=== PATIENT | female | born 1980 | race Caucasian/White ===

== ENCOUNTER 2025-03-14 05:58 | Emergency (ER) | payer OTHER, SELFPAY ==
--- NOTE | 2025-03-14 06:26 | ED.GENMED ---
History of Present Illness
General
Chief Complaint: Chest Pain
Source: patient
Exam Limitations: none
Time Seen by Provider: 03/14/25 06:18
History of Present Illness
History of Present Illness:
See MDM
Past History
Past History
ED Past Medical History: GERD
ED Past Surgical History: None
Social History
Tobacco: Non-smoker
Alcohol: None
Phy Exam
Physical Exam
Physical Exam:
See MDM
Scores
Heart Score for Chest Pain Patients
STEMI patient?: No
History: Slightly or Non-Suspicious
ECG: Normal
Age: </= 45 years
Risk Factors: No Risk Factors
Troponin: </= Normal Limit
Heart Score for Chest Pain Patients: 0
Heart Score Risk: 2.5% MACE over next 6 weeks
Course
Orders/Labs/Results
Orders:
Orders
03/14/25 06:03
Electrocardiogram (*1) Urgent
Reason for Study: Chest Pain
EKG- Treatment ONCE
03/14/25 06:24
Ketorolac [Toradol] 30 mg IV NOW STA
Test Result ONCE
03/14/25 06:25
CR Chest - 2 Views Urgent
Comment:
Reason For Exam: chest pain
03/14/25 06:33
HCG, Serum Qualitative Screen Urgent
03/14/25 07:03
Complete Blood Count/With Diff Urgent
Comment: REDRAW
Comprehensive Metabolic Panel Urgent
Comment: REDRAW
Troponin I Urgent
Comment: REDRAW
Abnormal Lab Results
03/14/25
07:03
Hgb 9.7 L g/dL
(12.0-16.0)
Hct 31.9 L %
(37.0-47.0)
MCV 72.2 L fL
(81.0-99.0)
MCH 21.9 L pg
(27.0-31.0)
MCHC 30.4 L g/dL
(33.0-37.0)
RDW 17.0 H %
(11.5-14.5)
MPV 11.8 H fL
(7.4-10.4)
BUN 22 H mg/dl
(7-17)
Glucose 115 H mg/dl
(70-99)
Total Bilirubin < 0.1 L mg/dl
(0.2-1.3)
03/14/25 07:03
03/14/25 07:03
Vital Signs
Initial and Last Documented VS:
Initial Vital Signs
Temp Pulse Resp Pulse Ox
97.8 F 71 20 100
03/14/25 06:01 03/14/25 06:01 03/14/25 06:01 03/14/25 06:01
Last Documented Vital Signs
Temp Pulse Resp Pulse Ox
97.8 F 88 20 100
03/14/25 06:01 03/14/25 06:20 03/14/25 06:20 03/14/25 06:29
MDM/Problems Addressed
Differential Diagnosis Includes:
Note:
CHIEF COMPLAINT(S)
Chest pain and back pain localized to the left side.
HISTORY OF PRESENT ILLNESS
The patient is a 44-year-old female with a known history of acid reflux, presenting with chest and back pain on the left side since approximately 3:30 a.m. She initially awoke secondary to discomfort from a tightly wrapped bandage following a mole
excision near her knee the previous day. She was able to fall back asleep but was subsequently awakened by the chest and back pain approximately at 3:30 a.m. The pain did not resolve with standard antacid treatment. The patient reports recent
dietary indiscretion, including the consumption of fried food. She denies any abdominal pain, and currently continues to experience chest discomfort.
PHYSICAL EXAM
General: Alert, no acute distress.
Skin: Warm, dry.
Head: Normocephalic, atraumatic
Neck: Appears supple, trachea midline.
Eyes, Ears, Nose, Mouth, and Throat: Moist mucous membranes
Cardiovascular: No signs of cyanosis. Regular rate and rhythm
Respiratory: Respirations are non-labored. Lungs clear
Abdomen: Non-distended
Musculoskeletal: No deformities
Neurological: No focal neurological deficit observed.
Psychiatric: Cooperative, appropriate mood and affect.
PLAN
- Perform an Electrocardiogram (EKG).
- Order blood work to evaluate for myocardial infarction.
- Obtain chest X-ray to rule out additional causes of the chest pain.
- Administer Toradol (ketorolac), an intravenous nonsteroidal anti-inflammatory drug (NSAID), for pain relief.
DIFFERENTIAL DIAGNOSIS
The Differential Diagnosis includes, in no particular order and is not limited to:
- Myocardial infarction
- Pulmonary embolism
- Pneumothorax
- Aortic dissection
- GERD (Gastroesophageal Reflux Disease)
- Musculoskeletal pain
- Costochondritis
- Anxiety-related chest pain
- Pericarditis
- Esophageal spasm
SUMMARY OF ENCOUNTER
The patient was seen in the emergency department due to concerns of left-sided chest and back pain. The presented symptoms prompted consideration of acute coronary syndrome, among other serious conditions. An EKG was performed, followed by blood
work and chest X-ray to eliminate emergent conditions. The patients recent surgical history and bandage discomfort were also considered in the overall assessment. Toradol was administered to alleviate the pain while ensuring the absence of
contraindications related to her recent surgical procedure.
EMERGENCY TREATMENTS ADMINISTERED
Intravenous Toradol for pain management.
MEDICATION RECONCILIATION
- Toradol (ketorolac) IV administered for pain relief.
MEDICAL DECISION MAKING
-Complexity of Data Reviewed: Chronic conditions affecting care [acid reflux]
-Data:
Category 1
Tests and documents: EKG and lab work ordered; chest X-ray considered for further evaluation.
Category 2
My independent interpretation of EKG indicates no immediate abnormalities suggestive of coronary artery disease.
Category 3
Discussion of management with other physician, healthcare provider, other source, not applicable in this case.
-Risk:
Consideration of Admission/Observation: Escalation of care including admission/observation was considered given the complexity and risk of the patients presenting complaint, exam findings, and/or her underlying comorbidities. However, ultimately, I
feel the patient is safe for outpatient management with close follow-up. Reasoning: Work-up reassuring, does not reveal any acute life/organ-threatening processes, the patients symptoms well controlled upon reevaluation, reexamination is reassuring,
vitals are stable, patient agreeable with discharge, reliable for follow-up.
DIAGNOSIS
- Chest pain (R07.9)
- Gastroesophageal reflux disease (GERD) (K21.9)
- Observation for myocardial infarction (Z03.4)
EKG
My independent EKG interpretation is:
- Sinus rhythm
- Heart rate: 84 beats per minute
- Normal axis
- No ST segment elevation
- Intervals within normal limits
SUMMARY OF ENCOUNTER
The patient presented to the emergency department with concerns of left-sided chest discomfort. Despite suspecting it might be gastritis-related, she reported persistent pain, prompting further evaluation. An Electrocardiogram (EKG) was performed,
indicating a non-ischemic pattern, and the chest findings were clear. Given the low index of suspicion for acute coronary syndrome and after a discussion about the likely non-cardiac nature of her symptoms, Toradol (ketorolac) was administered,
resulting in some improvement.
ASSESSMENT
The discussion focused on [id number] chest discomfort. Additionally, incidental anemia was identified, and options for management, including iron supplementation, were discussed with the patient.
EMERGENCY TREATMENTS ADMINISTERED
Toradol (ketorolac) was administered for pain relief.
PLAN
Perform further evaluations, if necessary, to rule out other causes of chest pain. Consider follow-up with primary care for ongoing management of GERD and monitoring of anemia.
PATIENT EDUCATION AND COUNSELING
Discussed with the patient the low concern for acute coronary syndrome and the [id number] nature of her chest discomfort. Anemia was also discussed, with suggestions to take iron supplements.
MEDICATION RECONCILIATION
Toradol (ketorolac) administered for pain relief.
MEDICAL DECISION MAKING
-Complexity of Data Reviewed: Chronic conditions affecting care [acid reflux]. Differential Diagnosis includes: Myocardial infarction, Pulmonary embolism, Pneumothorax, Aortic dissection, GERD, Musculoskeletal pain, Costochondritis, Anxiety-related
chest pain, Pericarditis, Esophageal spasm.
-Data:
Category 1: EKG ordered and reviewed indicating non-ischemic findings.
Category 2: My independent interpretation of EKG is: Rhythm: Normal sinus rhythm, Heart Rate: 84 beats per minute, [place]: Normal axis, Observations: No ectopic beats noted, ST Segment: No ST segment changes detected.
-Risk: Consideration of Admission/Observation: Escalation of care including admission/observation was considered given the complexity and risk of the patients presenting complaint, exam findings, and/or their underlying comorbidities. However,
ultimately, I feel the patient is safe for outpatient management with close follow-up. Reasoning: Work-up reassuring, does not reveal any acute life/organ threatening processes, the patients symptoms well controlled upon reevaluation, reexamination
is reassuring, vitals are stable, patient agreeable with discharge, reliable for follow-up.
DIAGNOSIS
- Chest pain (R07.9)
- Gastroesophageal reflux disease (GERD) (K21.9)
- Anemia, unspecified (D64.9)
*Pulse Oximetry
SaO2: 100
Oxygen Mode of Delivery: Room air
Patient hypoxic: no
*Critical Care Note
Total Time (30-74mins, 75-104mins- exclusive of procedures): Not Applicable
ED Attending Note
-
Portions of this chart may have been created with voice recognition software.� Occasional wrong word or��sound alike� substitutions may have occurred due to the inherent limitations of voice recognition software.
Discharge Plan
Departure
Patient Disposition: Home (Routine Discharge)
Date of Disposition: 03/14/25
Time of Disposition: 08:14
Patient with high blood pressure during this ER visit?: No
Discharge Problem:
Chest pain
Instructions: Chest Pain PCP Follow Up
Prescriptions:
No Action
pantoprazole 20 mg Tablet,Delayed Release (Dr/Ec)
20 mg PO DAILY
escitalopram oxalate [Lexapro] 20 mg Tablet
20 mg PO DAILY
Referrals:
[facility], [Other]
Paulina Diaz DO [Family Provider, Family Practice]
Activity Restrictions/Additional Instructions:
Please return for any worsening symptoms.
You may return at any time if you have further concerns.
Please follow up with your doctor at the first available appointment, preferably this week.
Thank you for choosing [facility].
Interventions
Interventions:
*Risk Screen - Suicide Last Done: 03/14/25 06:23
*General Assessment Last Done: 03/14/25 06:23
*Neglect/Abuse Screening Last Done: 03/14/25 06:23
*ED- Fall Risk Assessment Last Done: 03/14/25 06:23
*ED COVID-19 Vaccine History Last Done: 03/14/25 06:23
*ED Influenza Vaccine History Last Done: 03/14/25 06:23
ED- Cardiac Assessment Last Done: 03/14/25 06:28
Discharge Date and Time
Print Language: PORTUGUESE
[2025-03-14 06:27] VITALS: BMI 36.7
[2025-03-14 06:35] VITALS: BP 178/89
[2025-03-14] MEDS: TORADOL 30 MG IV (06:54)
[2025-03-14 07:14] LABS: HCG, Serum Qualitative Screen Negative
[2025-03-14 07:31] LABS: Hematocrit 31.9 % (37.0-47.0); Hemoglobin 9.7 g/dL (12.0-16.0); Mean Corp Hgb Conc. 30.4 g/dL (33.0-37.0); Mean Corpuscular Volume 72.2 fL (81.0-99.0); Nucleated Red Blood Cells % 0 %; Platelet Count 257 10^3/uL (130-400); Red Cell Dist. Width 17.0 % (11.5-14.5)
[2025-03-14 07:34] LABS: ALT (SGPT) 15 U/L (0-35); AST (SGOT) 18 U/L (14-36); Albumin 4.3 g/dl (3.5-5.0); Alkaline Phosphatase 69 U/L (38-126); Blood Urea Nitrogen 22 mg/dl (7-17); Calcium 9.5 mg/dl (8.4-10.2); Carbon Dioxide 27 mmol/L (22-30); Chloride 103 mmol/L (98-107); Estimated Creatinine Clearance 98 ml/min; Glucose 115 mg/dl (70-99); Potassium 4.6 mmol/L (3.5-5.1); Sodium 135 mmol/L (135-145); Total Protein 7.4 g/dl (6.3-8.2); eGFR > 60.00
[2025-03-14 07:52] LABS: Troponin I 0.019 ng/ml
[2025-03-14 08:15] VITALS: BP 150/95
== END 2025-03-14 08:22 | disposition home or self-care (01) ==
LOC: EMR 05:58
PROVIDERS: EMERGENCY PHYSICIAN Student in an Organized Health Care Education/Training Program; FAMILY PHYSICIAN Family Medicine
DX: R07.89 Other chest pain (principal); K21.9 Gastro-esophageal reflux disease without esophagitis; D64.9 Anemia, unspecified
CPT/HCPCS: 99283; 96374; 71046; 80053; 84484; 84703; 85025; 93005

== ENCOUNTER 2025-03-16 17:55 | Inpatient (IN) | payer OTHER, SELFPAY ==
[2025-03-16] VITALS (12 sets, daily range): BP systolic 142–177; BP diastolic 81–105; BMI 37.2; BMI 37.3
--- NOTE | 2025-03-16 09:20 | ED.GENMED ---
History of Present Illness
<GT Borjas - Last Filed: 03/16/25 16:29>
General
Chief Complaint: Chest Pain
Source: patient
Exam Limitations: none
Time Seen by Provider: 03/16/25 09:12
Nursing documentation reviewed up to this point in time: agreed with
History of Present Illness
History of Present Illness:
Patient is a 44-year-old female with history of reflux anxiety presents to the ER for evaluation. Patient complains of back pain chest pain. She was here 2 days ago for chest pain and back pain and had a full workup and was discharged home.
Patient reports around 12 AM she was awoken again by pain. She reports she has pain in her center of her chest which radiates to her back. She denies any associated shortness of breath nausea vomiting diaphoresis. She has some discomfort now in
her back. She denies any shortness of breath. She does have a history of reflux but this does not feel like reflux. She has no cardiac history. Her father did have an IA in his 40s.
She does not smoke. She is not on oral contraceptives no other DVT PE risk factors.
She denies any upper abdominal discomfort. She has tried naproxen and Advil along with antacids without relief
Past History
<GT Borjas - Last Filed: 03/16/25 16:29>
Past History
ED Past Medical History: GERD
ED Past Surgical History: None
Social History
Tobacco: Non-smoker
Alcohol: None
Phy Exam
<GT Borjas - Last Filed: 03/16/25 16:29>
General Physical Exam
General Presentation: no apparent distress
General age: appears stated age
General Skin: warm and dry
General Habitus: normal
General Mental: alert
General Hydration: appears well hydrated
Neurological Exam
Neurological Exam: alert and oriented x3
Musculoskeletal Exam
Musculoskeletal Exam: full ROM
Skin Exam
Skin Exam: normal color and warm/dry
Psychiatric Exam
Psychiatric Exam: normal mood/affect
Scores
<GT Borjas - Last Filed: 03/16/25 16:29>
Heart Score for Chest Pain Patients
STEMI patient?: Not applicable
Course
<GT Borjas - Last Filed: 03/16/25 16:29>
Orders/Labs/Results
Orders:
Orders
03/16/25 08:56
ECG [Electrocardiogram (*1)] Urgent
Reason for Study: Chest Pain
03/16/25 08:57
EKG- Treatment ONCE
03/16/25 09:15
IV Insert/Care/Rem.- Treatment PRN
O2 Therapy [RESP] Urgent
Titrate/Wean O2 to maintain O2 sat greater than (%): 90
Special Instructions: Maintain sats >/=90%
Pulse Ox/spot Check [RESP] Urgent
Quantity: 1
Special Instructions: ON ROOM AIR
03/16/25 09:28
Complete Blood Count/With Diff Urgent
Troponin I Urgent
03/16/25 09:37
CT Chest PE Study Urgent
Comment:
Reason For Exam: cp radiating to back
0.9% Sodium Chloride 1000 ml [Nss] 1,000 ml IV BOLUS
03/16/25 10:14
Ketorolac [Toradol] 15 mg .ROUTE .STK-MED ONE
03/16/25 10:19
Comprehensive Metabolic Panel Urgent
Lipase Urgent
Comment: ADD ON
03/16/25 10:57
Ketorolac [Toradol] 15 mg IV NOW STA
03/16/25 11:46
Morphine Sulfate 4 mg .ROUTE .STK-MED ONE
03/16/25 11:55
Morphine Sulfate 4 mg IV NOW STA
03/16/25 13:38
Add On- LAB Stat
Tests Added?: lipase
HYDROmorphone [Dilaudid] 1 mg IV NOW STA
03/16/25 13:40
US Abdomen Complete/Upper Urgent
Comment:
Reason For Exam: chest pain radiating to back
03/16/25 14:00
Electrocardiogram (*1) Urgent
Reason for Study: Chest Pain
EKG- Treatment ONCE
03/16/25 14:12
Troponin I Urgent
03/16/25 15:05
Mag Hydrox/Al Hydrox/Simeth [Maalox] 30 ml Phenobarb/Hyoscy/Atropine/Scop [] 10 ml Viscous Lidocaine 2% [Xylocaine Viscous Cup] 10 ml PO NOW
03/16/25 16:03
Mag Hydrox/Al Hydrox/Simeth [Maalox] 30 ml .ROUTE .STK-MED ONE
Phenobarb/Hyoscy/Atropine/Scop [] 10 ml .ROUTE .STK-MED ONE
Viscous Lidocaine 2% [Xylocaine Viscous Cup] 15 ml .ROUTE .STK-MED ONE
Abnormal Lab Results
03/16/25 03/16/25
09:28 10:19
WBC 12.8 H 10^3/uL
(4.8-10.8)
Hgb 9.5 L g/dL
(12.0-16.0)
Hct 30.4 L %
(37.0-47.0)
MCV 70.7 L fL
(81.0-99.0)
MCH 22.1 L pg
(27.0-31.0)
MCHC 31.3 L g/dL
(33.0-37.0)
RDW 16.8 H %
(11.5-14.5)
MPV 11.2 H fL
(7.4-10.4)
Absolute Neuts (auto) 9.4 H 10^3/uL
(1.4-6.5)
Absolute Monos (auto) 0.9 H 10^3/uL
(0.1-0.6)
Lymphocytes % 17.9 L %
(20.5-51.1)
Sodium 132 L mmol/L
(135-145)
BUN 18 H mg/dl
(7-17)
Glucose 106 H mg/dl
(70-99)
03/16/25 09:28
03/16/25 10:19
Vital Signs
Initial and Last Documented VS:
Initial Vital Signs
Temp Pulse Resp BP Pulse Ox
97.4 F 79 20 172/103 100
03/16/25 08:54 03/16/25 08:54 03/16/25 08:54 03/16/25 08:54 03/16/25 08:54
Last Documented Vital Signs
Temp Pulse Resp BP Pulse Ox
97.4 F 74 14 156/97 100
03/16/25 08:54 03/16/25 10:30 03/16/25 10:30 03/16/25 12:02 03/16/25 12:02
Cctv Technician consulted with Physician
Cctv Technician consulted with physician?: Yes
Name of Physician Consulted: Cherise
<Ailyn Luong MD - Last Filed: 03/16/25 13:59>
Orders/Labs/Results
Orders:
Orders
03/16/25 08:56
ECG [Electrocardiogram (*1)] Urgent
Reason for Study: Chest Pain
03/16/25 08:57
EKG- Treatment ONCE
03/16/25 09:15
IV Insert/Care/Rem.- Treatment PRN
O2 Therapy [RESP] Urgent
Titrate/Wean O2 to maintain O2 sat greater than (%): 90
Special Instructions: Maintain sats >/=90%
Pulse Ox/spot Check [RESP] Urgent
Quantity: 1
Special Instructions: ON ROOM AIR
03/16/25 09:28
Complete Blood Count/With Diff Urgent
Troponin I Urgent
03/16/25 09:37
CT Chest PE Study Urgent
Comment:
Reason For Exam: cp radiating to back
0.9% Sodium Chloride 1000 ml [Nss] 1,000 ml IV BOLUS
03/16/25 10:14
Ketorolac [Toradol] 15 mg .ROUTE .STK-MED ONE
03/16/25 10:19
Comprehensive Metabolic Panel Urgent
Lipase Urgent
Comment: ADD ON
03/16/25 10:57
Ketorolac [Toradol] 15 mg IV NOW STA
03/16/25 11:46
Morphine Sulfate 4 mg .ROUTE .STK-MED ONE
03/16/25 11:55
Morphine Sulfate 4 mg IV NOW STA
03/16/25 13:38
Add On- LAB Stat
Tests Added?: lipase
HYDROmorphone [Dilaudid] 1 mg IV NOW STA
03/16/25 13:40
US Abdomen Complete/Upper Urgent
Comment:
Reason For Exam: chest pain radiating to back
03/16/25 14:00
Electrocardiogram (*1) Urgent
Reason for Study: Chest Pain
EKG- Treatment ONCE
03/16/25 14:12
Troponin I Urgent
03/16/25 15:05
Mag Hydrox/Al Hydrox/Simeth [Maalox] 30 ml Phenobarb/Hyoscy/Atropine/Scop [] 10 ml Viscous Lidocaine 2% [Xylocaine Viscous Cup] 10 ml PO NOW
03/16/25 16:03
Mag Hydrox/Al Hydrox/Simeth [Maalox] 30 ml .ROUTE .STK-MED ONE
Phenobarb/Hyoscy/Atropine/Scop [] 10 ml .ROUTE .STK-MED ONE
Viscous Lidocaine 2% [Xylocaine Viscous Cup] 15 ml .ROUTE .STK-MED ONE
Abnormal Lab Results
03/16/25 03/16/25
09:28 10:19
WBC 12.8 H 10^3/uL
(4.8-10.8)
Hgb 9.5 L g/dL
(12.0-16.0)
Hct 30.4 L %
(37.0-47.0)
MCV 70.7 L fL
(81.0-99.0)
MCH 22.1 L pg
(27.0-31.0)
MCHC 31.3 L g/dL
(33.0-37.0)
RDW 16.8 H %
(11.5-14.5)
MPV 11.2 H fL
(7.4-10.4)
Absolute Neuts (auto) 9.4 H 10^3/uL
(1.4-6.5)
Absolute Monos (auto) 0.9 H 10^3/uL
(0.1-0.6)
Lymphocytes % 17.9 L %
(20.5-51.1)
Sodium 132 L mmol/L
(135-145)
BUN 18 H mg/dl
(7-17)
Glucose 106 H mg/dl
(70-99)
03/16/25 09:28
03/16/25 10:19
Vital Signs
Initial and Last Documented VS:
Initial Vital Signs
Temp Pulse Resp BP Pulse Ox
97.4 F 79 20 172/103 100
03/16/25 08:54 03/16/25 08:54 03/16/25 08:54 03/16/25 08:54 03/16/25 08:54
Last Documented Vital Signs
Temp Pulse Resp BP Pulse Ox
97.4 F 74 14 156/97 100
03/16/25 08:54 03/16/25 10:30 03/16/25 10:30 03/16/25 12:02 03/16/25 12:02
<GT Borjas - Last Filed: 03/16/25 16:29>
MDM/Problems Addressed
Differential Diagnosis Includes:
Not limited to GERD gastritis pancreatitis cholecystitis less likely PE
MDM/Problems Addressed:
As documented patient is a 44-year-old female who presents back to the ER today complaining of chest pain which radiates to the back. She was seen here 2 days ago and had a negative cardiac work up. She was awoken last night around 12 AM with
anterior chest pain that radiates to her back. She denies any fever or chills. She denies any shortness of breath. Patient presents uncomfortable given morphine IV. Abdomen soft nontender nontachypneic not hypoxic afebrile white count minimally
elevated which is increased compared to white count 2 days ago ; trop is 0.015 which Is decreased from 2 d ago. Given the chest pain radiating to back CT PE study was done negative for PE.t talk here is noted to be a 1.8 cm noncalcified gallstone
however the bladder is not completely visualized.
When patient came back from CAT scan she continues to be in discomfort now complaining of most of the pain in her left breast chest area rating to her back will give a dose of IV Dilaudid and add a lipase order an upper abdominal ultrasound. Case
discussed with ED physician who evaluated patient bedside.
US : IMPRESSION:
Shadowing gallstone is present in the region of the neck of the gallbladder. There is also a mobile layer of sludge within the gallbladder lumen.
Gallbladder wall appears thickened and possible small amount of pericholecystic edema adjacent to the superior wall the gallbladder. Negative sonographic Jose's sign.
Please correlate with clinical signs and symptoms that would be suggestive of acute cholecystitis.
No gross evidence of intrahepatic bile duct dilation. The common bile duct measures up to 7 mm, which is mildly dilated. No sonographic evidence for bile duct calculus.
The pancreas is not well-visualized, especially the tail the pancreas.
Patient is afebrile white count is unremarkable normal LFTs normal lipase. Likely biliary colic intractable pain will require admission. Case discussed with surgery Dr. Celeste who recommends n.p.o. at this time as well as admitting hospitalist.
N.p.o.
Chronic conditions affecting care:
GERD
<GT Borjas - Last Filed: 03/16/25 16:29>
*Radiology
Radiology exam reviewed: radiology read reviewed
*Pulse Oximetry
SaO2: 100
Oxygen Mode of Delivery: Room air
Patient hypoxic: no
*EKG
Interpreted by ED Provider?: Yes
Interpretation: normal
Comparison EKG: no changes
Heart Rate: 71
Rate: normal
Rhythm: sinus
Ischemia: no ischemia
*Critical Care Note
Total Time (30-74mins, 75-104mins- exclusive of procedures): Not Applicable
<GT Borjas - Last Filed: 03/16/25 16:29>
Patient Management
Discussion with other providers: Supercharger Mechanic (surg Dr Celeste )
ED Attending Note
<GT Borjas - Last Filed: 03/16/25 16:29>
-
Portions of this chart may have been created with voice recognition software.� Occasional wrong word or��sound alike� substitutions may have occurred due to the inherent limitations of voice recognition software.
<Ailyn Luong MD - Last Filed: 03/16/25 13:59>
ED Attending Note
Patient seen and examined by attending physician: Yes
I performed the substantive portion of visit, reviewed & personally made and approve the management plan that is documented in note by myself or RAMA.: Yes
ED Attending Note:
Patient's heart sounds regular. Her lungs are clear. Patient reports moderate pain behind the left breast. Her troponins are in the normal range, however, due to her ongoing chest pain, we will repeat her EKG and order another troponin.
Additionally, we will also order an upper abdominal ultrasound to better visualize her gallbladder and a lipase to rule out acute pancreatitis. CT report reviewed by me. No sign of PE or aortic dissection.
Discharge Plan
Departure
Patient Disposition: Admit
Date of Disposition: 03/16/25
Time of Disposition: 16:26
Admit to: Med/Surg
Admit to doctor: hospitalist
Presentation/result/management discussed w/ accepting MD/DO: Hospitalist
Patient with high blood pressure during this ER visit?: Yes
Condition: Fair
Covid-19: Not Applicable
Discharge Problem:
Biliary colic
Prescriptions:
No Action
pantoprazole 20 mg Tablet,Delayed Release (Dr/Ec)
20 mg PO DAILY
escitalopram oxalate [Lexapro] 20 mg Tablet
20 mg PO DAILY
Referrals:
Paulina Diaz DO [Family Provider, Family Practice]
Interventions
Interventions:
*Risk Screen - Suicide Last Done: 03/16/25 08:54
*General Assessment Last Done: 03/16/25 09:13
*Neglect/Abuse Screening Last Done: 03/16/25 09:14
*ED- Fall Risk Assessment Last Done: 03/16/25 09:13
*ED COVID-19 Vaccine History Last Done: 03/16/25 09:12
*ED Influenza Vaccine History Last Done: 03/16/25 09:13
ED- Cardiac Assessment Last Done: 03/16/25 09:10
Discharge Date and Time
Print Language: SPANISH
[2025-03-16 09:45] LABS: Hematocrit 30.4 % (37.0-47.0); Hemoglobin 9.5 g/dL (12.0-16.0); Mean Corp Hgb Conc. 31.3 g/dL (33.0-37.0); Mean Corpuscular Volume 70.7 fL (81.0-99.0); Nucleated Red Blood Cells % 0 %; Platelet Count 228 10^3/uL (130-400); Red Cell Dist. Width 16.8 % (11.5-14.5)
[2025-03-16] MEDS: NSS 1000 IV ×2 (10:00→20:15)
[2025-03-16 10:09] LABS: Troponin I 0.015 ng/ml
[2025-03-16] MEDS: TORADOL 15 MG IV (10:30)
[2025-03-16 10:54] LABS: ALT (SGPT) 12 U/L (0-35); AST (SGOT) 18 U/L (14-36); Albumin 3.7 g/dl (3.5-5.0); Alkaline Phosphatase 68 U/L (38-126); Blood Urea Nitrogen 18 mg/dl (7-17); Calcium 8.7 mg/dl (8.4-10.2); Carbon Dioxide 24 mmol/L (22-30); Chloride 103 mmol/L (98-107); Estimated Creatinine Clearance 108 ml/min; Glucose 106 mg/dl (70-99); Potassium 4.2 mmol/L (3.5-5.1); Sodium 132 mmol/L (135-145); Total Protein 6.5 g/dl (6.3-8.2); eGFR > 60.00
[2025-03-16] MEDS: MORPHINE SULFATE 4 MG IV (11:57)
[2025-03-16] MEDS: DILAUDID 1 MG IV ×2 (13:46→16:40)
[2025-03-16 14:12] LABS: Lipase 95 U/L (23-300)
[2025-03-16 14:51] LABS: Troponin I < 0.012 ng/ml
[2025-03-16] MEDS: MAALOX 50 PO (16:11)
--- NOTE | 2025-03-16 17:00 | CON.GS ---
Addendum entered and electronically signed by Patrick Celeste MD 03/17/25 11:12:
I saw and examined the patient.
The Follow Up Specialist's note was reviewed and I agree with the note.
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 AFVSS. ttp to RUQ on exam. mild leukocytosis noted. US with gBWT, PCF, 3cm stone in the neck of the gb, CBD WNL. OCTOR for rCCY.
Original Note:
Consultation
-
Date/Time Consultation Performed: 03/16/25 1645
Medical History
-
Chief Complaint: abdominal pain
History of Present Illness:
Ms Eugene is a 44 yo female with a GERD and hiatal hernia who presented initially 2 days ago with upper abdominal pain into her chest with cardiac work up negative and subsequent d/c to home as pain resolved with analgesics. She returns today with
the same pain which awakened her from sleep early this am and persisted. She describes the pain as being in her left upper abdomen underneath the breast and into her mid back. Pain persisted causing her to present again through the ED. She initially
felt like it was indigestion but omeprazole and Tums did not relieve symptoms. She denies associated nausea, vomiting or bowel changes. She denies jaundice or acholic stools. On exam, she is tender to the RUQ with no tenderness on the left. She
denies fevers or chills.
Past Medical History
Past Medical History: GERD (hiatal hernia)
Past Surgical History: Other (recent mole removal on leg)
Social History
Tobacco: Non-Smoker
Alcohol: None
Family History
Family History: Reviewed & Not Pertinent
Allergies / Home Medications
Allergy/AdvReac Type Severity Reaction Status Date / Time
No Known Allergies Allergy Verified 03/16/25 08:53
�Medication �Instructions �Recorded �Confirmed �Type
escitalopram oxalate 20 mg tablet 20 mg PO HS Mental Health/Anxiety 03/14/25 03/16/25 History
(Lexapro)
cholecalciferol (vitamin D3) 25 25 mcg PO DAILY Supplement 03/16/25 03/16/25 History
mcg (1,000 unit) tablet (Vitamin
D3)
ibuprofen 200 mg tablet (Advil) 400 mg PO Q6HPRN PRN MILD PAIN 03/16/25 03/16/25 History
naproxen sodium 220 mg tablet 220 mg PO BIDPRN PRN MILD PAIN 03/16/25 03/16/25 History
(Aleve)
omeprazole 20 mg tablet,delayed 20 mg PO DAILY Gastrointestinal 03/16/25 03/16/25 History
release Issue
Review of Systems
-
History Source: Patient and Family
All other systems: Negative unless noted
A 10 point review of systems was completed, and was negative except as per HPI.
Physical Exam
Vital Signs
Temp Pulse Resp BP Pulse Ox
97.4 F 74 14 156/97 100
03/16/25 08:54 03/16/25 10:30 03/16/25 10:30 03/16/25 12:02 03/16/25 12:02
03/15/25 03/16/25 03/17/25
06:59 06:59 06:59
Actual Weight 92.2 kg
Body Mass Index (BMI) 37.2
Lab Results
03/16/25 09:28
03/16/25 10:19
WBC 12.8 10^3/uL (4.8-10.8) H 03/16/25 09:28
Hgb 9.5 g/dL (12.0-16.0) L 03/16/25 09:28
Hct 30.4 % (37.0-47.0) L 03/16/25 09:28
Plt Count 228 10^3/uL (130-400) 03/16/25 09:28
Abs Immat Gran (auto) 0.0 10^3/uL (0-0.05) 03/16/25 09:28
Neutrophils % 73.7 % (42.2-75.2) 03/16/25 09:28
Physical Exam
General: Well Developed and Well Nourished
HEENT: Moist Mucous Membranes
Respiratory: Non Labored Respirations
GI: Soft, Non Distended and Tender (RUQ)
Skin: Warm and Dry
Neuro: Awake, Alert and AO x 3
Psych: Calm
Data Reviewed
-
CT Scan: Image Personally Visualized and interpreted, Report Reviewed by me, Discussed with Physician, Discussed with Patient and Discussed with Family
Ultrasound: Image Personally Visualized and interpreted, Report Reviewed by me, Discussed with Physician, Discussed with Patient and Discussed with Family
Labs: Labs Reviewed by me, Discussed with Physician, Discussed with Patient and Discussed with Family
Old Records: Reviewed
Assessment / Plan
-
44 yo female with recurrent left sided abdominal pain into her mid back. 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
this gallstone in the neck of the gallbladder. Gallbladder wall thickening seen on both images, with pericholecystic edema. On exam, she is quite tender to the RUQ. She initially denied nausea, but then started vomiting just after exam. AFVSS. Mild
leukocytosis. LFT's WNL. Lipase WNL. Suspect biliary colic vs more likely acute cholecystitis
Plan:
Keep NPO given ongoing symptoms
Analgesics/antiemetics
Start IV Zosyn for empiric coverage
Will add on to OR schedule for AM for lap vs robotic cholecystectomy
Discussed with hospitalist team
--- NOTE | 2025-03-16 17:43 | HPS.HSE ---
Family Physician
-
Family Physician: Paulina Diaz
Chief Complaint
-
Chest/Abdominal pain
History of Present Illness
Patient is a 44-year-old female with a PMH significant for GERD and OCD who is presenting with upper abdominal and lower chest pain. Patient initially presented 2 days ago to [facility] with left-sided chest pain that woke her up from sleep. Cardiac
workup was negative and patient was discharged home as her pain resolved with analgesics. Patient returned to the ED today with similar pain that woke her up last night. She describes it as left-sided, under her left breast. Patient at first
thought the pain was related to reflux as she has a history of GERD for which she takes omeprazole, although Tums did not help and she states the pain is different in nature than her normal episodes of reflux. Patient denies shortness of breath,
radiating chest pain, heart palpitations. Patient does note new nausea with vomiting that started in the ED.
In the ED today, patient's blood work was unremarkable, aside from hemoglobin of 9.5. Lipase was 95, troponins negative. EKG showed normal sinus rhythm. CT PE study indicated no evidence of PE, but did visualize a 1.8 noncalcified gallstone seen
within the gallbladder. Abdominal ultrasound showed shadowing of the gallstone in the region of the neck of the gallbladder, as well as a mobile area of sludge, with pericholecystic edema. No dilation of the bile duct. Surgery has been consulted
and plans to take patient for cholecystectomy tomorrow morning. Patient will be admitted to the medicine team for medical management.
Medical History
Past Medical History
Past Medical History: Reports GERD
Past Surgical History: Reports None
Social History
Tobacco: Non-smoker
Alcohol: None
Family History
Family History: Diabetes
Allergies / Home Medications
Allergies reflects when Allergies were last updated in [employer].
Home Medications with original date entered in [employer]
Allergy/Medication List:
Allergies
Allergy/AdvReac Type Severity Reaction Status Date / Time
No Known Allergies Allergy Verified 03/16/25 08:53
Home Medications
escitalopram oxalate 20 mg tablet (Lexapro) 20 mg PO HS Mental Health/Anxiety 03/14/25
cholecalciferol (vitamin D3) 25 mcg (1,000 unit) tablet (Vitamin D3) 25 mcg PO DAILY Supplement 03/16/25
ibuprofen 200 mg tablet (Advil) 400 mg PO Q6HPRN PRN MILD PAIN 03/16/25
naproxen sodium 220 mg tablet (Aleve) 220 mg PO BIDPRN PRN MILD PAIN 03/16/25
omeprazole 20 mg tablet,delayed release 20 mg PO DAILY Gastrointestinal Issue 03/16/25
Review of Systems
-
History Source: Patient and Family
Constitutional: Reports No Symptoms
EENT: Reports No Symptoms
Respiratory: Reports No Symptoms
Cardiac: Reports Chest Pain
Abdomen/GI: Reports Abdominal Pain, Nausea and Vomiting
: Reports No Symptoms
Musculoskeletal: Reports No Symptoms
Skin: Reports Other (Atypical mole removed on medial right lower extremity, bandaged with Steri-Strips)
Neurological: Reports No Symptoms
Endocrine: Reports No Symptoms
Hematologic/Lymphatic: Reports No Symptoms
Psych: Reports OCD
Physical Exam
Vital Signs
Vital Signs
Temp Pulse Resp BP Pulse Ox
97.4 F 87 20 159/84 99
03/16/25 08:54 03/16/25 17:15 03/16/25 17:15 03/16/25 17:00 03/16/25 16:30
Physical Exam
General: Well Developed and Well Nourished
HEENT: Moist mucous membranes
Respiratory: Clear
Cardiac: Regular Rhythm
GI: Soft, Non Distended and Tender (Right upper quadrant, positive Jose sign)
Musculoskeletal: No Edema
Skin: Warm and Dry
Neuro: Awake, Alert and Oriented
Psych: Anxious
Laboratory Results
-
03/16/25 09:28
03/16/25 10:19
Laboratory Results
Total Bilirubin 0.3 mg/dl (0.2-1.3) 03/16/25 10:19
AST 18 U/L (14-36) 03/16/25 10:19
ALT 12 U/L (0-35) 03/16/25 10:19
Alkaline Phosphatase 68 U/L (38-126) 03/16/25 10:19
Troponin I < 0.012 ng/ml 03/16/25 14:12
Lipase 95 U/L (23-300) 03/16/25 10:19
Impression/Plan
-
IMPRESSION:
Acute cholecystitis
Iron deficiency anemia
Hypertension
GERD
OCD/anxiety
PLAN:
#Acute cholecystitis
- General Surgery consulted
- Plan for cholecystectomy tomorrow with Dr. Celeste
- Pain management ordered as needed
- Zofran ordered for nausea
- N.p.o. after midnight
- Start IV fluids
#Iron deficiency anemia
- Hemoglobin 9.5,, MCV 70.7, RDW 16.8
- Ordered iron studies
- Repeat CBC in a.m.
#GERD
- Patient recently endorses taking increased doses of NSAIDs at home for pain management
- IV omeprazole 40 mg twice daily
#Hypertension
- No known history of HTN
- BP elevation likely secondary to pain
- Will reevaluate after pain is controlled and will treat accordingly
#OCD/anxiety
- Continue home escitalopram 20 mg nightly
Full code
DVT PPx: Lovenox
Diet: N.p.o.
[2025-03-16] MEDS: ZOFRAN 4 MG IV (17:50)
[2025-03-16] MEDS: ZOSYN 50 IV (17:50)
--- NOTE | 2025-03-16 17:54 | CM ---
Chart reviewed and spoke with patient and mother at ED bedside
Lives in [place] with parents
Independent , working at [employer]
no DME
PCP Dr. Paulina Evans
RX plan yes
Pharmacy [facility]
no hx of VN nor SNF
DCP is to return home with no services
Parents or her sister can drive her home at DC
Cm will continue to follow up for any dcp needs
--- NOTE | 2025-03-16 17:58 | W.PN.UPDATE ---
Update Note
Progress Note Update
Attending�addendum:
I saw and evaluated the patient independently. I reviewed and discussed the resident�s note and agree with findings and plan as documented in the resident�s note.� Patient presented to the ER with left-sided chest pain, was here 2 days ago and
workup was negative, CT chest done today shows no PE, ultrasound done shows concern of acute cholecystitis, patient seen and examined at bedside, still with left-sided chest pain, epigastric pain.
Physical�exam:
GENERAL : Patient is awake, alert, oriented x3
HEENT: Nonicteric sclerae, PERRLA, EOMI. Oropharynx clear. Moist mucous membranes. Conjunctivae appear well perfused.
CHEST: Chest wall is nontender.
HEART: Regular rate and rhythm without murmurs.
LUNGS: Clear to auscultation bilaterally.
ABDOMEN: Epigastric tenderness
MUSCLES/EXTREMITIES: No abnormal range of motion, no swelling.SKIN: No rash, no excessive bruising, petechiae, or purpura.
NEUROLOGIC: Cranial nerves II-XII intact without motor/sensory deficit.
Assessment/plan:
Acute cholecystitis.
Admit under medical service.
Surgery consult.
N.p.o. for midnight.
Pain and nausea control
Left-sided chest pain.
Atypical.
Negative troponin
Negative CT chest for PE and aortic dissection
Musculoskeletal in nature.
Continue with pain control.
Possible referred pain from acute cholecystitis
Microcytic anemia.
Low MCV.
Possible iron deficiency with elevated RDW
Hypertension
possible secondary to pain.
No history of hypertension
Depression.
Continue Lexapro
CODE STATUS: Full code
DVT prophylaxis: Lovenox
Diet: N.p.o.
Family communication: Discussed with mother at bedside
Disposition: Admit under hospitalist, n.p.o. after midnight, surgery in a.m.
Total time spent on today�s encounter was 75 minutes which included time spent in counseling the patient/family regarding diagnosis and treatment plan as listed above, goals of care, and symptom management. Case was discussed with nursing staff,
specialists, and care coordinators/case management. All labs and imaging personally reviewed by me. Remainder the time spent in detailed review of previous records, lab data, imaging, and other medical provider documentation.
[2025-03-16] MEDS: PROTONIX IV 40 MG IV (20:16)
[2025-03-16] MEDS: TORADOL 10 MG IV (20:16)
[2025-03-16] MEDS: NSS (PRESERVATIVE FREE) 10 ML IV (20:16)
[2025-03-16] MEDS: LOVENOX 40 MG SC (20:17)
[2025-03-16] MEDS: LEXAPRO 20 MG PO (20:18)
[2025-03-16] MEDS: DILAUDID 0.5 MG IV (23:58)
[2025-03-17] VITALS (12 sets, daily range): BP systolic 97–135; BP diastolic 50–79
[2025-03-17] MEDS: TYLENOL 650 MG PO ×2 (04:06→21:04)
[2025-03-17] MEDS: NSS 1000 IV ×2 (04:07→21:00)
[2025-03-17 07:41] LABS: Hematocrit 28.2 % (37.0-47.0); Hemoglobin 9.0 g/dL (12.0-16.0); Mean Corp Hgb Conc. 31.9 g/dL (33.0-37.0); Mean Corpuscular Volume 71.2 fL (81.0-99.0); Nucleated Red Blood Cells % 0 %; Platelet Count 194 10^3/uL (130-400); Red Cell Dist. Width 16.8 % (11.5-14.5)
[2025-03-17 07:45] LABS: Blood Urea Nitrogen 8 mg/dl (7-17); Calcium 8.3 mg/dl (8.4-10.2); Carbon Dioxide 23 mmol/L (22-30); Chloride 102 mmol/L (98-107); Estimated Creatinine Clearance > 125 ml/min; Glucose 121 mg/dl (70-99); Potassium 3.8 mmol/L (3.5-5.1); Sodium 130 mmol/L (135-145); eGFR > 60.00
[2025-03-17 07:55] LABS: Total Iron Binding Capacity 353 ug/dl (265-497)
[2025-03-17 07:56] LABS: Iron < 20 ug/dl (37-170)
[2025-03-17 08:19] LABS: Ferritin 16.3 ng/ml (6.24-137)
[2025-03-17] MEDS: ZOSYN 50 IV ×3 (08:43→21:00)
[2025-03-17] MEDS: DILAUDID 0.5 MG IV (08:44)
[2025-03-17] MEDS: NSS (PRESERVATIVE FREE) 10 ML IV ×2 (08:44→21:00)
[2025-03-17] MEDS: PROTONIX IV 40 MG IV ×2 (08:44→21:00)
--- NOTE | 2025-03-17 09:18 | W.PN.HOSP.TC ---
Addendum entered and electronically signed by Seamus Dillard MD 03/17/25 13:20:
Attending�addendum:
I saw and evaluated the patient independently. I reviewed and discussed the resident�s note and agree with findings and plan as documented in the resident�s note.� Patient still complains of abdominal pain epigastric and right upper quadrant area
and some bloating. No nausea or vomiting. Afebrile
Physical�exam:
GENERAL : Patient is awake, alert, oriented x3
HEENT: Nonicteric sclerae, PERRLA, EOMI. Oropharynx clear. Moist mucous membranes. Conjunctivae appear well perfused.
CHEST: Chest wall is nontender.
HEART: Regular rate and rhythm without murmurs.
LUNGS: Clear to auscultation bilaterally.
ABDOMEN: Epigastric tenderness
MUSCLES/EXTREMITIES: No abnormal range of motion, no swelling.SKIN: No rash, no excessive bruising, petechiae, or purpura.
NEUROLOGIC: Cranial nerves II-XII intact without motor/sensory deficit.
Assessment/plan:
Acute cholecystitis.
Admitted under medical service.
Surgery consult.
N.p.o.
IV antibiotics, IV Zosyn
Pain control
Plan for cholecystectomy today
Left-sided chest pain.
Atypical.
Negative troponin
Negative CT chest for PE and aortic dissection
Continue with pain control.
Likely referred pain from acute cholecystitis
Microcytic anemia.
Low MCV. Hemoglobin stable at 9 today
Possible iron deficiency with elevated RDW
Elevated blood pressure with no diagnosis of hypertension
Likely secondary to pain. Continue to monitor off medications.
No history of hypertension
Depression.
Continue Lexapro
CODE STATUS: Full code
DVT prophylaxis: Lovenox
Diet: N.p.o.
Disposition: Plan for cholecystectomy today. Discharge once cleared by surgery postop.
Original Note:
Today's Communication/Plan
-
- Surgery planned for today
- Pain management as needed
- Continue Protonix
Assessment / Plan
Assessment / Plan
Patient is a 44-year-old female presenting with epigastric pain found to have acute cholecystitis on imaging.
#Acute cholecystitis
- Surgery consulted, plan for cholecystectomy today 03/17
- N.p.o.
- Pain management as needed
- PPx Zosyn started by surgery
#GERD
- Insetting of increased NSAID use for pain
- Pantoprazole 40 mg IV twice daily
#Anxiety/OCD
- Continue Lexapro
#Hypertension
- Elevated BP likely due to pain
- No history of hypertension
Anticipated Discharge: Within 24 hours
Subjective/Interval History
-
Date of Service: March 17, 2025
Patient seen this morning. Patient is anxious about surgery today. Patient states that her pain is mildly improved with pain medication. She is describing the pain now as epigastric. Patient noted that she had a headache overnight which was
relieved with Tylenol.
Objective Data
-
Labs:
Laboratory Results
03/17/25
06:05
WBC 13.8 H
Hgb 9.0 L
Hct 28.2 L
Plt Count 194
Sodium 130 L
Potassium 3.8
Chloride 102
Carbon Dioxide 23
BUN 8
Creatinine 0.5 L
Glucose 121 H
Calcium 8.3 L
Vital Signs:
Vital Signs
Temp Pulse Resp BP Pulse Ox
99.0 F 101 16 135/76 96
03/17/25 07:00 03/17/25 07:00 03/17/25 07:00 03/17/25 07:00 03/17/25 07:00
Review of Systems
-
History Source: Patient
Constitutional: Reports No Symptoms
EENT: Reports No Symptoms Reported
Respiratory: Reports No Symptoms
Cardiac: Reports No Symptoms
Abdomen/GI: Reports Abdominal Pain (Epigastric)
Genitourinary: Reports No Symptoms
Musculoskeletal: Reports No Symptoms
Skin: Reports Other (Reasonable removal, bandage in place on right lower leg)
Neuro: Reports No Symptoms
Endocrine: Reports No Symptoms
Hematologic / Lymphatic: Reports No Symptoms
Allergy / Immunology: Reports No Symptoms
Psych: Reports Anxious
Physical Exam
-
General: Well Developed, Well Nourished, No Apparent Distress and Comfortable
Respiratory: Clear to Auscultation
Cardiac: Regular Rhythm
GI: Soft, Nontender and Nondistended
Musculoskeletal: No Edema
Skin: Warm and Dry
Neuro: Awake, Alert and Oriented
--- NOTE | 2025-03-17 12:37 | OR.RPT ---
Operative Report
Operative Report
Primary Surgeon: Booker
Pre-op Diagnosis: Acute calculous cholecystitis
Post-op Diagnosis: Acute calculous cholecystitis with hydrops
Procedure Performed: Robot assisted laparoscopic cholecystectomy
Anesthesia Type: GETA
Specimen / Cultures: Gallbladder
Estimated Blood Loss: 10cc
Complications: None immediate
Operative Findings: Severely inflamed tensely distended gallbladder with hydrops, decompressed with cyst aspiration needle, pus draining from gallbladder wall
DOS: 03/17/25
Indications: This 44F developed right upper quadrant/epigastric pain and on workup was found to have acute calculous cholecystitis, with normal liver enzymes and normal ducts. Laparoscopic cholecystectomy with robotic assist was elected.
Description of procedure: The patient was placed on the operating table in the supine position. General anesthesia was induced. A time-out was completed verifying correct patient, procedure, site, positioning, and special equipment prior to
beginning this procedure. An orogastric tube was placed. The abdomen was prepped and draped in the usual sterile fashion. A stab incision was made in left upper quadrant and the Veress needle was inserted. Proper position was confirmed by aspiration
and saline meniscus test. The abdomen was insufflated with carbon dioxide to a pressure of 12 mmHg. The patient tolerated insufflation well.
An 8mm optical trocar was then inserted in the left upper quadrant. The laparoscope was inserted and the abdomen inspected. No injuries from initial trocar placement or Veress needle insertion were noted. An umbilical/incisional hernia was noted
with bowel and omental contents. This was avoided. Additional 8mm trocars were then inserted in the following locations: above the umbilicus, right mid clavicular line at the level of the umbilicus and 6cm lateral to this on the right. The abdomen
was inspected and no abnormalities were found. The table was placed in the reverse Trendelenburg position with the right side up. The gallbladder was tensely distended. It was decompressed with a cyst aspiration needle. Hydropic fluid and pus
drained out. The dome of the gallbladder was grasped with an atraumatic grasper and retracted over the dome of the liver. The infundibulum was then grasped with an atraumatic grasper and retracted toward the right lower quadrant. The gallbladder
wall was edematous and severely thickened. This maneuver exposed Calot�s triangle. The cystic duct and cystic artery were dissected out until the only two structures entering the gallbladder were these two structures.
The cystic artery was controlled with bipolar and divided. The cystic duct was doubly clipped and divided. The gallbladder was dissected free from the liver bed. Hemostasis was assured and the gallbladder and contained stones were removed using an
endoscopic retrieval bag placed through the umbilical port. The gallbladder was passed off the table as a specimen. There was no evidence of bleeding from the gallbladder fossa or cystic artery or leakage of the bile from the cystic duct stump. The
abdomen was irrigated thoroughly with sterile saline until effluent ran clear. The umbilical trocar site was closed laparoscopically at the fascial level with 2-0 maxon. Secondary trocars were removed under direct vision and noted to be hemostatic.
The laparoscope was withdrawn and the umbilical trocar removed. The abdomen was allowed to collapse. The skin was closed with subcuticular sutures of 4-0 monocryl and topical skin adhesive. The orogastric tube was removed.
The patient tolerated the procedure well and was taken to the postanesthesia care unit in stable condition.
--- NOTE | 2025-03-17 15:28 | PTCARENOTE ---
~1000 OR called for report. Patient sent via hospital bed accompanied by transport x2. Atbx and chart sent with patient.
~1400 PACU called for report, patient transferred back into 2106 via hospital bed accompanied by ORDER PULLER. x4 lap sites and 1 puncture site noted to carleen doss CDI. Denies pain/nausea at this time. Atbx given as per order, see MAR. VSS, call vásquez
within reach, care ongoing.
[2025-03-17] MEDS: LOVENOX 40 MG SC (17:45)
[2025-03-17] MEDS: NSS IV (17:48)
[2025-03-17] MEDS: LEXAPRO 20 MG PO (21:04)
[2025-03-17] MEDS: TORADOL 10 MG IV (21:04)
[2025-03-18] MEDS: ZOSYN 50 IV ×3 (02:29→13:43)
[2025-03-18 03:10] VITALS: BP 121/77
[2025-03-18 07:05] VITALS: BP 122/66
[2025-03-18 07:34] LABS: Hematocrit 24.8 % (37.0-47.0); Hemoglobin 7.6 g/dL (12.0-16.0); Mean Corp Hgb Conc. 30.6 g/dL (33.0-37.0); Mean Corpuscular Volume 71.7 fL (81.0-99.0); Platelet Count 176 10^3/uL (130-400); Red Cell Dist. Width 17.1 % (11.5-14.5)
[2025-03-18 07:56] LABS: Calcium 8.1 mg/dl (8.4-10.2); Chloride 104 mmol/L (98-107); Estimated Creatinine Clearance 109 ml/min; Glucose 114 mg/dl (70-99); Potassium 3.4 mmol/L (3.5-5.1); Sodium 133 mmol/L (135-145); eGFR > 60.00
[2025-03-18] MEDS: TYLENOL 650 MG PO (08:09)
[2025-03-18] MEDS: NSS (PRESERVATIVE FREE) 10 ML IV (08:09)
[2025-03-18] MEDS: PROTONIX IV 40 MG IV (08:09)
[2025-03-18] MEDS: NSS 1000 IV (08:10)
[2025-03-18 08:33] LABS: Blood Urea Nitrogen 6 mg/dl (7-17); Carbon Dioxide 25 mmol/L (22-30)
--- NOTE | 2025-03-18 09:09 | W.PN.GS2 ---
Today's Communication / Plan
-
Recheck H/H this afternoon
Assessment / Plan
-
44F POD1 s/p rCCY for ACC
AFVSS, clinically following expected course
Labs notable for Hb 7.6
Plan:
H/H 3PM, if stable OK to DC home this louisa
Would DC with 7 day course augmentin 875mg
Cont reg diet
PRN pain meds
Hold chemical dvt ppx, scds only
Subjective Data
-
Date of Service: March 18, 2025
AFVSS, pain controlled, ambulating, vernell PO
Objective Data
-
Intake and Output
03/17/25 03/18/25 03/19/25
06:59 06:59 06:59
Intake Total 480 / 480
Balance 480 / 480
Intake:
Oral fluids 480 / 480
Other:
Number of approximated MODERATE 2
amounts of urine
Vital Signs
Temp Pulse Resp BP Pulse Ox
98.5 F 93 18 122/66 97
03/18/25 07:05 03/18/25 07:05 03/18/25 07:05 03/18/25 07:05 03/18/25 07:05
Lab Results
03/18/25 07:16
03/18/25 07:16
Calcium 8.1 mg/dl (8.4-10.2) L 03/18/25 07:16
Total Bilirubin 0.3 mg/dl (0.2-1.3) 03/16/25 10:19
AST 18 U/L (14-36) 03/16/25 10:19
ALT 12 U/L (0-35) 03/16/25 10:19
Alkaline Phosphatase 68 U/L (38-126) 03/16/25 10:19
Total Protein 6.5 g/dl (6.3-8.2) 03/16/25 10:19
Albumin 3.7 g/dl (3.5-5.0) 03/16/25 10:19
Physical Exam
-
Gen: NAD
Abd: soft, approp ttp, incisios cdi with glue
Patient has a javier catheter: No
Patient has a central line: No
[2025-03-18 10:28] LABS: Vitamin D, 25-OH*** 20.4 ng/mL (30-80)
[2025-03-18 11:03] LABS: Vitamin B12 403 pg/ml (239-931)
[2025-03-18 11:05] VITALS: BP 122/63
--- NOTE | 2025-03-18 13:43 | W.PN.HOSP.TC ---
Addendum entered and electronically signed by Sang Llanos MD 03/18/25 15:12:
All follow-up care was discussed with the patient in detail. Discharge coordination time more than 30 minutes
Addendum entered and electronically signed by Sang Llanos MD 03/18/25 15:07:
Seen and examined the patient with the resident. Agree with plan of care. See changes in my documentation.
44-year-old female presented to ER 2 days prior to admission with chest pain cardiac workup was negative and she was discharged with analgesics. Patient returned with similar pain CT PE study was negative
CT chest-mild respiratory motion artifact. No PE. Aberrant right subclavian artery results in deviation of the esophagus towards the left this could possibly result in symptoms such as dysphagia/difficulty swallowing. Slightly enlarged right
paratracheal lymph node nonspecific by imaging. Likely reactive. Mild chronic elevation of the right hemidiaphragm. Mild dependent atelectasis in the posterior lungs. 1.8 cm noncalcified gallstone in the visualized gallbladder within the
gallbladder being incompletely included
Ultrasound of the gallbladder-shadowing gallstone in the region of the neck of the gallbladder. Also mobile clear of sludge within the gallbladder lumen. Gallbladder wall appears thickened and possible small amount of pericholecystic edema
adjacent to the superior wall of the gallbladder. Negative sonographic Jose sign. No gross evidence of intrahepatic bile dilatation. CBD 7 mm. Pancreas is not well-visualized.
Awake alert oriented
Not in any acute distress
Chest clear to auscultation
Cardiovascular system S1-S2 appreciated
Abdomen laparoscopic's wounds stable, mild ecchymosis noted
No pedal edema
# Chest pain secondary to acute cholecystitis
Acute cholecystitis
Zosyn to be changed for Augmentin for 1 more week discharge per surgery
Pain control
Status post robotic assisted laparoscopic cholecystectomy on 03/17/[address] Celeste
Started on a low-fat diet-seem to be tolerating
# Left-sided chest pain-likely secondary to above
Troponin negative
Possible gastritis also from taking Naprosyn/ibuprofen
CT chest for PE-negative no dissection
Continue PPI
# Microcytic anemia-drop in hemoglobin noted-unclear if patient has postoperative blood loss anemia. IV iron for iron deficiency anemia. Rt Hb
Stop NSAIDS
Repeat hemoglobin stable 8.2
Discussed with patient regarding getting endoscopy and colonoscopy as outpatient.
She follows up with GI at [facility]. Will get repeat endoscopy
History of endoscopy in the past which was okay per patient.
Advised to call for appointment. Patient has an appointment coming up in May but she will call to see if it can be preponed
# Hypokalemia-replace
# Hyponatremia-improving
# Elevated blood pressure-no history of hypertension
# Anxiety/OCD-continue Lexapro
# DVT prophylaxis-Lovenox
# Full code
Discussed with surgeon
Discussed with nursing
D/W Family at bed side
Discharge if okay with surgeon with outpatient follow-up of hemoglobin
Part of this note was created using voice recognition system. Occasional wrong word or��sound alike� substitutions may have inadvertently occurred due to the inherent limitations of voice recognition software. If noted kindly bring it to my
attention for correction.
Original Note:
Today's Communication/Plan
-
- POD #1 s/p cholecystectomy
- Hgb 7.6 this a.m. Discharge pending repeat H&H results
- Hemoccult stool testing
Assessment / Plan
Assessment / Plan
Patient is a 44-year-old female presenting with epigastric pain found to have acute cholecystitis on imaging.
#Acute cholecystitis
- S/p cholecystectomy
- Patient tolerating advance diet
- Pain management as needed
- PPx Zosyn started by surgery, will continue 7 days of Augmentin p.o. upon discharge per surgery recommendations
#Iron deficiency anemia
- Hemoglobin baseline of 9.5
- Hemoglobin today 7.6
- H&H reordered for 3 PM today
- Iron studies completed: Iron less than 20, TIBC 353, ferritin 16.3
- IV iron ordered
- Hemoccult stool sample ordered for today.
#GERD
- Insetting of increased NSAID use for pain
- While admitted pantoprazole 40 mg IV twice daily
- Will transition back to home dose omeprazole at discharge
- [facility] Patient will call office to schedule follow-up appointment sooner than her already scheduled visit in May.
#Anxiety/OCD
- Continue Lexapro
#Hypertension
- Elevated BP on admission likely due to pain
- No history of hypertension
- BP normotensive today: 122/66
Anticipated Discharge: Today
Subjective/Interval History
-
Date of Service: March 18, 2025
Patient seen at bedside this morning. Patient is feeling well after surgery yesterday. Patient notes of mild tenderness in the right upper quadrant and at the sites of incision. Patient plans on ordering breakfast and has passed gas. Patient
also notes a mild headache. Patient is no longer experiencing the epigastric/lower chest pain.
Objective Data
-
Labs:
Laboratory Results
03/18/25 03/18/25
07:16 15:00
WBC 12.6 H
Hgb 7.6 L Pending
Hct 24.8 L Pending
Plt Count 176
Sodium 133 L
Potassium 3.4 L
Chloride 104
Carbon Dioxide 25
BUN 6 L
Creatinine 0.7
Glucose 114 H
Calcium 8.1 L
Vital Signs:
Vital Signs
Temp Pulse Resp BP Pulse Ox
97.9 F 95 18 122/63 97
03/18/25 11:05 03/18/25 11:05 03/18/25 11:05 03/18/25 11:05 03/18/25 11:05
I&O
03/17/25 03/18/25 03/19/25
06:59 06:59 06:59
Intake Total 480 / 480 50 / 50
Balance 480 / 480 50 / 50
Review of Systems
-
History Source: Patient
Constitutional: Reports No Symptoms
EENT: Reports No Symptoms Reported
Respiratory: Reports No Symptoms
Cardiac: Reports No Symptoms
Abdomen/GI: Reports Other (Mild tenderness RUQ and incisional sites)
Genitourinary: Reports No Symptoms
Musculoskeletal: Reports No Symptoms
Skin: Reports No Symptoms
Neuro: Reports No Symptoms
Endocrine: Reports No Symptoms
Hematologic / Lymphatic: Reports No Symptoms
Allergy / Immunology: Reports No Symptoms
Physical Exam
-
General: Well Developed, Well Nourished, No Apparent Distress and Comfortable
Respiratory: Clear to Auscultation
Cardiac: Regular Rhythm
GI: Soft, Nondistended, Tender (Mildly tender in RUQ and around incisional sites.) and Other (Surgical incisional sites well-approximated with glue. Xiphoid process incision bandaged. Mild bruising around umbilicus)
Musculoskeletal: No Edema
Skin: Warm and Dry
Neuro: Awake, Alert and Oriented
Psych: Calm
[2025-03-18] MEDS: FERRLECIT 110 MG IV (14:46)
[2025-03-18 14:59] LABS: Hematocrit 26.7 % (37.0-47.0); Hemoglobin 8.2 g/dL (12.0-16.0)
--- NOTE | 2025-03-18 15:25 | CM ---
Patient seen in hallway [address] walking with family. Per discharge plan home with no needs anticipated. CM will continue to follow for discharge planning needs.
Plan; home with no needs anticipated at this time
[2025-03-18 15:35] VITALS: BP 114/85
--- NOTE | 2025-03-18 16:52 | W.DCSUMMARY ---
Addendum entered and electronically signed by Sang Llanos MD 03/21/25 17:27:
Read, reviewed, and agree. See same day progress note for additional details.
Original Note:
Discharge Summary
Discharge Data
Date of Admission: 03/16/25
Date of Discharge: 03/18/25
-
Pending Results: Yes
Additional Pending Results:
Surgical pathology specimen
Hospital Course
Primary diagnosis: Acute cholecystitis
Secondary diagnosis: Iron deficiency anemia, GERD, anxiety/OCD
Hospital course:
Patient is a 44-year-old female with a PMH significant for GERD and hiatal hernia who presented to [facility] with upper abdominal and lower chest pain. Initially patient presented to the ED on 03/14/2025 with left-sided chest pain. Cardiac workup was
completed and found to be negative. Patient was discharged home his pain resolved with analgesics. Patient returned to the ED on 03/16/2025 with similar pain. In the ED, blood work was remarkable for hemoglobin of 9.5. Lipase was 95. EKG showed
normal sinus rhythm and troponins were negative. Patient had a CT chest and abdominal ultrasound which both revealed a 1.8 cm gallstone located in the neck of the gallbladder with associated pericholecystic edema. General surgery was consulted,
pain management as needed patient was admitted.
Overnight patient was kept n.p.o. and given pain medication as needed. On 03/17, patient underwent cholecystectomy with Dr. Patrick Celeste. Per surgery documentation, operative findings included severely inflamed, tensely distended gallbladder with
hydrops which was decompressed with cyst aspiration needle with pus draining from the gallbladder wall. Surgery opted to keep patient overnight due to the inflammation and infection found in the gallbladder. This morning patient is feeling better,
recovering well from surgery. Her incisions are well-approximated with glue and bandaged. Patient has mild tenderness, but her pain that she was feeling prior is completely resolved. Per general surgery recommendations patient will be discharged
on 7 days of Augmentin.
On blood work this morning, patient found to have a hemoglobin of 7.6, decreased from yesterday's hemoglobin of 9.5. Iron studies were completed on admission and indicated an iron deficiency anemia at baseline, which was likely exacerbated by fluid
dilution. Repeat H&H revealed hemoglobin of 8.2. 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 We also advised
patient to avoid NSAIDs.
Patient will be discharged home today.
Imaging:
03/16/[address]
IMPRESSION: Mild respiratory motion artifact, slightly limiting evaluation of the distal segmental and subsegmental pulmonary arteries. Given this limitation, no evidence for pulmonary embolism.
Note is made of an aberrant right subclavian artery, which results in deviation of the esophagus toward the left, with the esophagus being between the aortic arch and the proximal aspect of the inferior right subclavian artery. This could possibly
result in symptoms such as dysphagia/difficulty swallowing.
Slightly enlarged right paratracheal lymph node, nonspecific by imaging. Statistically, this is most likely a reactive inflammatory lymph node.
Mild chronic elevation right hemidiaphragm. Mild dependent atelectasis in the posterior lungs.
1.8 cm noncalcified gallstone is seen within the visualized gallbladder, with the gallbladder being incompletely included on the [id number] of this exam.
03/16/2025 abdominal ultrasound
IMPRESSION:
Shadowing gallstone is present in the region of the neck of the gallbladder. There is also a mobile layer of sludge within the gallbladder lumen.
Gallbladder wall appears thickened and possible small amount of pericholecystic edema adjacent to the superior wall the gallbladder. Negative sonographic Jose's sign.
Please correlate with clinical signs and symptoms that would be suggestive of acute cholecystitis.
No gross evidence of intrahepatic bile duct dilation. The common bile duct measures up to 7 mm, which is mildly dilated. No sonographic evidence for bile duct calculus.
The pancreas is not well-visualized, especially the tail the pancreas.
Discharge Plan
-
Patient Disposition: Home (Routine Discharge)
Discharge Diagnosis/Procedures: Acute cholecystitis status post robotic cholecystectomy
Anemia with iron deficiency
Vitamin D deficiency
Low sodium and potassium
Anxiety
Condition: Good
Diet: As tolerated
Additional Diets: Switch to a low fat diet for the next 4-6 if you develop loose stools after surgery
Activity: No strenuous activity
Additional Activity: Do not lift over 20lbs for the next 2-3 weeks
Driving Restrictions: No driving for 24 hours
Bathing Restrictions: OK to Shower
Blood Work: CBC 3 to 4 days
Wound Care: Glue will flake off your incisions on its own over the next 2-3 weeks. Avoid soaking in tubs or pools for one week. Ok to shower.
Activity Restrictions/Additional Instructions:
Call your surgeon if you have nausea with vomiting, worsening pain or a fever >100.5
Follow-up with your GI doctor for endoscopy, colonoscopy and further workup of anemia
Instructions: Cholecystectomy (DC)
Referrals:
Patrick Celeste MD [Active, Surgical] - in two to four weeks
Paulina Diaz DO [Family Provider, Family Practice]
Additional Discharge Medication Instructions: Do not take ibuprofen or naproxen at the same time, use one or the other. Ok to alternate one of these medications with Tylenol.
Prescriptions:
New
tramadol 50 mg tablet
50 mg PO Q6H PRN (Reason: Pain) Qty: 20 0RF
amoxicillin-pot clavulanate 875-125 mg tablet
1 tab PO Q12 Qty: 14 0RF
acetaminophen 325 mg Tablet
650 mg PO Q4HPRN PRN (Reason: mild pain) Qty: 0 0RF
cholecalciferol (vitamin D3) 25 mcg (1,000 unit) Tablet
25 mcg PO DAILY Qty: 0 0RF
polyethylene glycol 3350 17 gram Powder In Packet
17 g PO DAILYPRN PRN (Reason: constipation) Qty: 0 0RF
pantoprazole [Protonix] 40 mg tablet,delayed release (DR/EC)
40 mg PO DAILY Qty: 30 0RF
ferrous sulfate 325 mg (65 mg iron) tablet
325 mg PO DAILY Qty: 60 0RF
Continued
escitalopram oxalate [Lexapro] 20 mg Tablet
20 mg PO HS
cholecalciferol (vitamin D3) [Vitamin D3] 25 mcg (1,000 unit) Tablet
25 mcg PO DAILY
omeprazole 20 mg Tablet,Delayed Release (Dr/Ec)
20 mg PO DAILY
Discontinued
naproxen sodium [Aleve] 220 mg Tablet
220 mg PO BIDPRN PRN (Reason: MILD PAIN)
ibuprofen [Advil] 200 mg Tablet
400 mg PO Q6HPRN PRN (Reason: MILD PAIN)
Discharge Orders:
Discharge Patient (As Directed); Ordered 03/18/25
Ordered By: Klaudia Rivas
Discharge Date and Time
Discharge Date/Time: 03/18/25 16:33
Print Language: TURKISH
== END 2025-03-18 16:33 | disposition home or self-care (01) | DRG 418 ==
LOC: 2 SOUTH 17:55
PROVIDERS: ADMITTING PHYSICIAN General Practice; ATTENDING PHYSICIAN Hospitalist; CONSULT PHYSICIAN Surgery; EMERGENCY PHYSICIAN Emergency Medicine; FAMILY PHYSICIAN Family Medicine
PROC: 0FT44ZZ Resection of Gallbladder, Percutaneous Endoscopic Approach (ICD-10-PCS; 2025-03-17)
PROC: 8E0W4CZ Robotic Assisted Procedure of Trunk Region, Percutaneous Endoscopic Approach (ICD-10-PCS; 2025-03-17)
DX: K80.00 Calculus of gallbladder with acute cholecystitis without obstruction (principal); J98.11 Atelectasis; D50.9 Iron deficiency anemia, unspecified; F41.9 Anxiety disorder, unspecified; K21.9 Gastro-esophageal reflux disease without esophagitis; F42.9 Obsessive-compulsive disorder, unspecified; E55.9 Vitamin D deficiency, unspecified; I10 Essential (primary) hypertension; Z79.899 Other long term (current) drug therapy; F32.A Depression, unspecified
CPT/HCPCS: 71275; 76700; 80048; 80053; 82306; 82607; 82728; 83540; 83550; 83690; 84484; 85014; 85018; 85025; 85027; 88304; 93005; 94760; 96361; 96365; 96375; 96376; 99285; J2916; Q9967